=== PATIENT | female | born 1955 | race Hispanic/Latino ===

== ENCOUNTER 2022-02-10 12:48 | Observation (INO) | payer OTHER, MEDICARE ==
[2022-02-10] MEDS ORDERED: Boostrix 0.5 ML (Tdap) VIAL ONE (13:29)
[2022-02-10] MEDS ORDERED: Fentanyl 100 MCG/2 ML VIAL ONE ×2 (13:30→14:39)
[2022-02-10 13:43] LABS: INR-International Normal Ratio 1.1; Prothrombin Time 14.2 sec (12.0-14.7)
[2022-02-10 13:44] LABS: PTT 30.9 sec (22.9-36.1)
[2022-02-10 13:55] LABS: ALT (SGPT) 110 U/L (8-55); AST (SGOT) 223 U/L (5-34); Albumin 3.9 g/dL (3.4-4.8); Alkaline Phosphatase 129 U/L (40-110); Anion Gap 17 mmol/L (10-20); BUN (Urea Nitrogen) 12 mg/dL (9.8-20.1); Bilirubin, Total 0.5 mg/dL (0.2-1.2); Calc. Creatinine Clearance 0 mL/min (70-130); Calcium 8.6 mg/dL (7.8-10.44); Carbon Dioxide 20 mmol/L (23-31); Chloride 100 mmol/L (98-107); Globulin 3.8 g/dL (2.4-3.5); Glucose 395 mg/dL (80-115); Potassium 3.6 mmol/L (3.5-5.1); Protein, Total 7.7 g/dL (5.8-8.1); Sodium 133 mmol/L (136-145)
[2022-02-10] MEDS ORDERED: Iopamidol-370 76% 500 ML 1 ML ONE (14:49)
[2022-02-10] MEDS ORDERED: Dextrose 5% in Water 1,000 ML IV PRN (17:32)
[2022-02-10] MEDS ORDERED: Ondansetron ODT 4 MG TAB PO PRN (17:32)
[2022-02-10] MEDS ORDERED: Dextrose 50% Abboject 50 ML SYRINGE SLOW IVP PRN (17:32)
[2022-02-10] MEDS ORDERED: traMADol HCl 50 MG TAB PO PRN (17:36)
[2022-02-10 17:39] LABS: #Basophils 0.1 thou/uL (0.0-0.2); #Eosinphils 0.6 thou/uL (0.0-0.7); #Lymphocytes 3.8 thou/uL (1.20-3.40); #Neutrophils 10.3 thou/uL (1.40-6.50); %Basophils 0.5 % (0.0-1.0); %Monocytes 6.2 % (0.0-10.0); %Neutrophils 65.4 % (42.0-75.0); Hemoglobin 14.6 g/dL (12.0-16.0); Mean Corpuscular HGB CONC 32.8 g/dL (32.0-36.0); Mean Corpuscular Hemoglobin 30.4 pg (27.0-31.0); Mean Corpuscular Volume 92.8 fL (78.0-98.0); Mean Platelet Volume 9.1 fL (7.4-10.4); Platelet Count 300 thou/uL (130-400); RBC Distribution Width 12.3 % (11.5-14.5); Red Blood Cell (RBC) Count 4.81 mill/uL (4.20-5.40); White Blood Cell (WBC) Count 15.7 thou/uL (4.8-10.8)
[2022-02-10 18:03] LABS: Magnesium 1.8 mg/dL (1.6-2.6)
[2022-02-10] MEDS ORDERED: clonazePAM 0.5 MG TAB PO PRN (18:15)
[2022-02-10] MEDS: Morphine 2 MG/ML VIAL SLOW IVP PRN ×2 (19:37→22:40)
[2022-02-10] MEDS: Famotidine 20 MG TAB PO SCH (20:43)
[2022-02-10] MEDS: Ibuprofen 200 MG TAB PO SCH (20:43)
[2022-02-10] MEDS: traMADol HCl 50 MG TAB PO SCH (20:44)
[2022-02-10] MEDS: Acetaminophen 500 MG TAB PO SCH ×2 (20:44→23:46)
[2022-02-10] MEDS ORDERED: Insulin Glargine 30 UNITS/0.3 ML VIAL SC SCH (21:00)
[2022-02-11] MEDS: traMADol HCl 50 MG TAB PO SCH ×4 (00:17→17:19)
[2022-02-11 01:49] VITALS: BMI 26.0
[2022-02-11] MEDS: Ibuprofen 200 MG TAB PO SCH ×3 (03:43→13:36)
[2022-02-11 05:41] LABS: #Basophils 0.1 thou/uL (0.0-0.2); #Eosinphils 0.4 thou/uL (0.0-0.7); #Lymphocytes 3.3 thou/uL (1.20-3.40); #Monocytes 1.4 thou/uL (0.11-0.59); %Basophils 0.4 % (0.0-1.0); %Eosinophils 3.9 % (0.0-10.0); %Lymphocytes 29.4 % (21.0-51.0); %Monocytes 12.4 % (0.0-10.0); %Neutrophils 53.9 % (42.0-75.0); Hemoglobin 13.3 g/dL (12.0-16.0); Mean Corpuscular HGB CONC 33.1 g/dL (32.0-36.0); Mean Corpuscular Hemoglobin 30.5 pg (27.0-31.0); Mean Corpuscular Volume 92.2 fL (78.0-98.0); Mean Platelet Volume 8.4 fL (7.4-10.4); Platelet Count 276 thou/uL (130-400); RBC Distribution Width 12.3 % (11.5-14.5); Red Blood Cell (RBC) Count 4.35 mill/uL (4.20-5.40); White Blood Cell (WBC) Count 11.2 thou/uL (4.8-10.8)
[2022-02-11 06:04] LABS: Anion Gap 11 mmol/L (10-20); BUN (Urea Nitrogen) 11 mg/dL (9.8-20.1); Calc. Creatinine Clearance 72 mL/min (70-130); Calcium 7.9 mg/dL (7.8-10.44); Carbon Dioxide 24 mmol/L (23-31); Chloride 101 mmol/L (98-107); Glucose 297 mg/dL (80-115); Potassium 3.1 mmol/L (3.5-5.1); Sodium 133 mmol/L (136-145)
[2022-02-11] MEDS: Acetaminophen 500 MG TAB PO SCH ×3 (06:09→17:18)
[2022-02-11] MEDS: HumaLOG 300 UNITS/3 ML VIAL SC PRN ×3 (06:10→15:47)
[2022-02-11] MEDS: Famotidine 20 MG TAB PO SCH (08:41)
[2022-02-11] MEDS: Morphine 2 MG/ML VIAL SLOW IVP PRN ×2 (08:48→14:10)
[2022-02-11] MEDS ORDERED: Potassium Chloride 20 MEQ TAB PO SCH (10:00)
[2022-02-11] MEDS ORDERED: Scopolamine 1.5 mg/72 hour Patch TD SCH (14:00)
[2022-02-11 16:13] VITALS: BP 145/81; TEMP 98.6
== END 2022-02-11 18:00 | disposition home or self-care (01) ==
LOC: ERS 12:48 → SJJU 17:20
PROVIDERS: ADMIT Surgery; ATTEND Surgery
DX: S52.042A Displaced fracture of coronoid process of left ulna, initial encounter for closed fracture (principal); S22.080A Wedge compression fracture of T11-T12 vertebra, initial encounter for closed fracture; G89.11 Acute pain due to trauma; E11.65 Type 2 diabetes mellitus with hyperglycemia; I10 Essential (primary) hypertension; K44.9 Diaphragmatic hernia without obstruction or gangrene; K57.30 Diverticulosis of large intestine without perforation or abscess without bleeding; Z79.4 Long term (current) use of insulin; Z79.899 Other long term (current) drug therapy; V89.2XXA Person injured in unspecified motor-vehicle accident, traffic, initial encounter
CPT/HCPCS: 24600; 36415; 36416; 70450; 71045; 71260; 72125; 74177; 80048; 80053; 83735; 84100; 85025; 85610; 85730; 86850; 86900; 86901; 90471; 90715; 94760; 96374; 96375; 96376; G0378; G0390; J1815; J2270; J3010; Q9967